=== PATIENT | female | born 1995 | race American Indian/Alaskan Native ===

== ENCOUNTER 2020-12-13 01:38 | Emergency (ER) | payer SELFPAY ==
[2020-12-13 03:19] LABS: Basophils % (Auto) 0.2 % (0.0-1.8); Eosinophils # (Auto) 0.2 K/mm3 (0.0-0.4); Eosinophils % (Auto) 2.3 % (0.0-4.3); Hematocrit 37.7 % (30.3-42.9); Hemoglobin 12.9 gm/dl (10.1-14.3); Lymphocytes # (Auto) 2.7 K/mm3 (1.2-5.4); Lymphocytes % (Auto) 26.5 % (13.4-35.0); Mean Corpuscular HGB Conc 34 % (30-34); Mean Corpuscular Volume 90 fl (79-97); Monocytes % (Auto) 9.5 % (0.0-7.3); Platelet Count 363 K/mm3 (140-440); Red Blood Count 4.18 M/mm3 (3.65-5.03); Red Cell Distribution Width 12.3 % (13.2-15.2)
[2020-12-13 03:41] LABS: Alanine Aminotransferase 10 units/L (7-56); Albumin 4.1 g/dL (3.9-5); Blood Urea Nitrogen 11 mg/dL (7-17); Calcium 8.8 mg/dL (8.4-10.2); Hemolysis Index 3
[2020-12-13 03:58] LABS: Bacteria,Urine 1+ /HPF (Negative); Bilirubin,Urine NEG (Negative); Blood,Urine NEG (Negative); Color,Urine Yellow (Yellow); Mucus,Urine 3+ /HPF; WBC,Urine < 1.0 /HPF (0.0-6.0)
[2020-12-13 04:00] LABS: BUN/Creatinine Ratio 22
--- NOTE | 2020-12-13 07:58 | Emergency Department Report ---
HPI - General Chief Complaint: Abdominal Pain - HPI HPI: Room 24 The patient is a 25-year-old female present with a chief complaint of abdominal cramping. The patient states that she is and last night developed bilateral lower quadrant cramping. Patient states the pain was intermittent. Patient denies vaginal bleeding or history of fever. When asked how she is fe mundo currently the patient states she feels good. ED Past Medical Hx - Past Medical History Previous Medical History?: No - Surgical History Past Surgical History?: No - Family History Family history: no significant - Social History Smoking Status: Never Smoker Substance Use Type: Marijuana - Medications Home Medications: Home Medications Medication Instructions Recorded Confirmed Last Taken Type Sulfamethoxazole/Trimethoprim 1 each PO BID 5 Days #10 tablet 07/29/19 Unknown Rx [Bactrim DS TAB] ED Review of Systems ROS: Stated complaint: EARLY /CRAMPING Other details as noted in HPI Constitutional: denies: fever Eyes: denies: eye pain ENT: denies: throat pain Respiratory: no symptoms reported Cardiovascular: denies: chest pain Endocrine: no symptoms reported Gastrointestinal: abdominal pain Genitourinary: denies: abnormal menses Musculoskeletal: denies: back pain Neurological: denies: headache Physical Exam - Physical Exam Vital Signs: Vital Signs 12/13/20 02:42 Temperature 98.4 F Pulse Rate 90 Respiratory 18 Rate Blood Pressure 112/79 O2 Sat by Pulse 99 Oximetry Physical Exam: GENERAL: The patient is well-developed well-nourished female lying on stretcher not appearing to be in acute distress. [] HEENT: Normocephalic. Atraumatic. Extraocular motions are intact. Patient has moist mucous membranes. NECK: Supple. Trachea midline CHEST/LUNGS: Clear to auscultation. There is no respiratory distress noted. HEART/CARDIOVASCULAR: Regular. There is no tachycardia. There is no gallop rub or murmur. ABDOMEN: Abdomen is soft, nontender. Patient has normal bowel sounds. There is no abdominal distention. SKIN: There is no rash. There is no edema. There is no diaphoresis. NEURO: The patient is awake, alert, and oriented. The patient is cooperative. The patient has no focal neurologic deficits. The patient has normal speech MUSCULOSKELETAL: There is no evidence of acute injury. ED Course Vital Signs 12/13/20 02:42 Temperature 98.4 F Pulse Rate 90 Respiratory 18 Rate Blood Pressure 112/79 O2 Sat by Pulse 99 Oximetry ED Medical Decision Making - Lab Data Result diagrams: 12/13/20 02:59 12/13/20 02:59 Laboratory Tests 12/13/20 12/13/20 12/13/20 02:59 02:59 02:59 WBC 10.1 RBC 4.18 Hgb 12.9 Hct 37.7 MCV 90 MCH 31 MCHC 34 RDW 12.3 L Plt Count 363 Lymph % (Auto) 26.5 [place] % (Auto) 9.5 H Eos % (Auto) 2.3 Baso % (Auto) 0.2 Lymph # (Auto) 2.7 [place] # (Auto) 1.0 H Eos # (Auto) 0.2 Baso # (Auto) 0.0 Seg Neutrophils % 61.5 Seg Neutrophils # 6.2 Sodium 136 L Potassium 3.6 Chloride 102.5 Carbon Dioxide 22 Anion Gap 15 BUN 11 Creatinine 0.5 L Estimated GFR > 60 BUN/Creatinine Ratio 22 Glucose 87 Calcium 8.8 Total Bilirubin 0.40 AST 12 ALT 10 Alkaline Phosphatase 69 Total Protein 7.6 Albumin 4.1 Albumin/Globulin Ratio 1.2 HCG, Qual Positive HCG, Quant Urine Color Urine Turbidity Urine pH Ur Specific [place] Urine Protein Urine Glucose (UA) Urine Ketones Urine Blood Urine Nitrite Ur Reducing Substances Urine Bilirubin Urine Ictotest Urine Urobilinogen Ur Leukocyte Esterase Urine WBC (Auto) Urine RBC (Auto) U Epithel Cells (Auto) Urine Bacteria (Auto) Urine Mucus 12/13/20 12/13/20 02:59 Unknown WBC RBC Hgb Hct MCV MCH MCHC RDW Plt Count Lymph % (Auto) [place] % (Auto) Eos % (Auto) Baso % (Auto) Lymph # (Auto) [place] # (Auto) Eos # (Auto) Baso # (Auto) Seg Neutrophils % Seg Neutrophils # Sodium Potassium Chloride Carbon Dioxide Anion Gap BUN Creatinine Estimated GFR BUN/Creatinine Ratio Glucose Calcium Total Bilirubin AST ALT Alkaline Phosphatase Total Protein Albumin Albumin/Globulin Ratio HCG, Qual HCG, Quant 9283 H Urine Color Yellow Urine Turbidity Clear Urine pH 7.0 Ur Specific [place] 1.027 Urine Protein 30 mg/dl Urine Glucose (UA) Neg Urine Ketones Neg Urine Blood Neg Urine Nitrite Neg Ur Reducing Substances Not Reportable Urine Bilirubin Neg Urine Ictotest Not Reportable Urine Urobilinogen 4.0 Ur Leukocyte Esterase Neg Urine WBC (Auto) < 1.0 Urine RBC (Auto) 1.0 U Epithel Cells (Auto) 6.0 Urine Bacteria (Auto) 1+ Urine Mucus 3+ - Radiology Data Radiology results: report reviewed (Pelvic ultrasound), image reviewed (Pelvic ultrasound) [facility] [address] [place] [address] Ultrasound Report Signed Patient: BJ GAITAN MR#: [id number] : 1995 Acct:[id number] Age/Sex: 25 / F ADM Date: 12/13/20 Loc: ED Attending Dr: Ordering Physician: KEVIN HER Date of Service: 12/13/20 Procedure(s): US OB transvaginal Accession Number(s): [id number] cc: KEVIN HER FIRSTTRIMESTER OBSTETRIC ULTRASOUND ULTRASOUND OB TRANSVAGINAL HISTORY: and cramping without bleeding that started this morning COMPARISON: None. TECHNIQUE: Routine transabdominal and transvaginal OB ultrasound performed. FINDINGS: The uterus is retroverted and measures 8.1 x 4.5 x 5.0 cm. No uterine mass is detected. A small intrauterine gestational sac is identified measuring 9 mm in average diameter which correlates with a 5 week 5 day . A small yolk sac is suggested. No convincing pole or heart rate is detected. No subchorionic hemorrhage. The right ovary measures 4.7 x 3.0 x 3.7 cm and contains 2 cysts. The larger cyst is simple in appearance measuring up to 2.8 cm. The smaller cyst is slightly complex with fine internal s eptations measuring up to 1.8 cm. The left ovary is unremarkable measuring 2.6 x 1.9 x 1.9 cm. No pelvic fluid collection is detected. IMPRESSION An intrauterine gestational sac is identified containing a small yolk sac. No definite pole or heart rate is detected at this time. This could represent an early normal intrauterine . Close interval follow-up is recommended. Right ovarian cysts as described. Signer Name: Loi Vargas Jr, MD Signed: 12/13/2020 7:58 AM Workstation Name: [id number] Transcribed By: TTR Dictated By: LOI VARGAS JR, MD Electronically Authenticated By: LOI VARGAS JR, MD Signed Date/Time: 12/13/20757 DD/ 3 TD/TT: Print Cancel - Differential Diagnosis Abdominal cramping, round ligament pain, threatened Critical care attestation.: If time is entered above; I have spent that time in minutes in the direct care of this critically ill patient, excluding procedure time. ED Disposition Clinical Impression: Abdominal cramping, Disposition: TO HOME OR SELFCARE Is pt being admited?: No Does the pt Need Aspirin: No Condition: Stable Instructions: Abdominal Pain (ED), Abdominal Pain During , Pepe-zy-Yigh Additional Instructions: Return to the emergency department should you develop worsening symptoms, inability to tolerate food or liquids, high fever or any other concerns Referrals: PRIMARY CARE, [Primary Care Provider] - 3-5 Days ADOLFO MASON MD [Staff Physician] - 3-5 Days (Dr. Mason is an COMPANY LAB[employer]ER. Please follow-up with her or your own COMPANY LAB[employer]ER for further evaluation) Time of Disposition: 08:11
--- NOTE | 2020-12-13 08:02 | Ultrasound Report ---
FIRSTTRIMESTER OBSTETRIC ULTRASOUND ULTRASOUND OB TRANSVAGINAL HISTORY: and cramping without bleeding that started this morning COMPARISON: None. TECHNIQUE: Routine transabdominal and transvaginal OB ultrasound performed. FINDINGS: The uterus is retroverted and measures 8.1 x 4.5 x 5.0 cm. No uterine mass is detected. A small intra uterine gestational sac is identified measuring 9 mm in average diameter which correlates with a 5 we ek 5 day . A small yolk sac is suggested. No convincing pole or heart rate is de tected. No subchorionic hemorrhage. The right ovary measures 4.7 x 3.0 x 3.7 cm and contains 2 cysts. The larger cyst is simple in appear ance measuring up to 2.8 cm. The smaller cyst is slightly complex with fine internal septations measu ring up to 1.8 cm. The left ovary is unremarkable measuring 2.6 x 1.9 x 1.9 cm. No pelvic fluid collection is detected. IMPRESSION An intrauterine gestational sac is identified containing a small yolk sac. No definite pole or heart rate is detected at this time. This could represent an early normal intrauterine pregnanc y. Close interval follow-up is recommended. Right ovarian cysts as described. Signer Name: Loi Vargas Jr, MD Signed: 12/13/2020 7:58 AM Workstation Name: [id number]
[2020-12-13 08:31] VITALS: BP 120/79
== END 2020-12-13 08:31 | disposition home or self-care (01) ==
LOC: ED 01:38
DX: O26.891 Other specified pregnancy related conditions, first trimester (principal); R10.31 Right lower quadrant pain; R10.32 Left lower quadrant pain; O99.321 Drug use complicating pregnancy, first trimester; F12.90 Cannabis use, unspecified, uncomplicated; Z3A.01 Less than 8 weeks gestation of pregnancy; Z98.890 Other specified postprocedural states; Z79.899 Other long term (current) drug therapy
CPT/HCPCS: 36415; 76801; 76817; 80053; 81001; 84702; 84703; 85025; 99284

== ENCOUNTER 2021-06-22 11:52 | Outpatient (CLI) | payer OTHER ==
[2021-06-22 12:56] VITALS: BP 111/70
[2021-06-22 13:59] LABS: Bacteria,Urine 1+ /HPF (Negative); Bilirubin,Urine NEG (Negative); Blood,Urine NEG (Negative); Color,Urine Yellow (Yellow); Mucus,Urine 3+ /HPF; Urobilinogen,Urine < 2.0 mg/dL (<2.0)
[2021-06-22] MEDS ORDERED: LACTATED RINGERS 1,000 ML IV ONE (14:46)
[2021-06-22] MEDS ORDERED: LACTATED RINGERS 1,000 ML IV SCH (19:15)
--- NOTE | 2021-06-22 19:23 | Event Note ---
Date: 06/22/21 Pt is a 25 y.o. pt that came to triage with complaints of upper abdominal pain that started this morning while she was eating breakfast. EFM category 1 with contractions. She was also noted to have some maternal tachycardia to the 120s. Cervical exam closed/thick/OOP. She was given some IV fluids with continued irregular contractions but unchanged cervix. Heart rate upon discharge was 90's to low 100's. Pt had no complaints of chest pain. Pt stated after IV fluid bolus that she was feeling better, no longer had abdominal pain, and was not feeling any contractions. She also denied vaginal bleeding, and LOF. There was positive movement. Plan for her to follow up in the office on Sunday the @ 1330. Pt aware of appointment date and time. Discussed when to call the financial administration officer provider. Pt discharged home in good condition, with no complaints, and ambulatory.
== END 2021-06-22 19:30 | disposition home or self-care (01) ==
LOC: TRG 11:52 → APU 12:09 → TRG 19:30
PROVIDERS: ATTEND Obstetrics & Gynecology
DX: O62.9 Abnormality of forces of labor, unspecified (principal); Z3A.32 32 weeks gestation of pregnancy
CPT/HCPCS: 59025; 81001; 87086; 96360; 96361; J7120; J3490

== ENCOUNTER 2021-06-27 14:32 | Outpatient (CLI) | payer OTHER ==
[2021-06-27] MEDS ORDERED: LACTATED RINGERS 500 ML IV ONE ×2 (14:53→15:36)
[2021-06-27] MEDS ORDERED: TERBUTALINE 1 MG/1 ML INJ SUB-Q SCH (15:00)
[2021-06-27 15:07] VITALS: BP 129/70
[2021-06-27] MEDS ORDERED: LACTATED RINGERS 1,000 ML IV ONE (15:36)
[2021-06-27 17:21] LABS: Bilirubin,Urine NEG (Negative); Blood,Urine SM (Negative); Color,Urine Yellow (Yellow); Mucus,Urine 2+ /HPF; Urobilinogen,Urine < 2.0 mg/dL (<2.0)
--- NOTE | 2021-06-27 18:05 | Event Note ---
Date: 06/27/21 Pt is a 25 y.o. @ 32+ wks sent from office d/t dehydration and ctxs. Cervical exam cl/th/hi. She was given IV fluids and no desires to be discharged home. She declined a second bag of IV fluids. She denies vaginal bleeding, LOF. There is positive movement and the monitor strip throughout triage stay was a category 1 with some irregular ctxs noted. Of note patient with maternal tachycardia. Will put in for outpatient referral to [facility]. Pt currently denies shortness of breath and chest pain. Pt provided the number to call to make an appointment. Will follow up with patient this week. Pt given strict precautions on when to return to triage for an evaluation and when to call the training professional provider. Pt discharged from triage in good condition.
== END 2021-06-27 18:10 | disposition home or self-care (01) ==
LOC: TRG 14:32 → APU 14:34 → TRG 18:10
PROVIDERS: ATTEND Obstetrics & Gynecology
DX: O62.9 Abnormality of forces of labor, unspecified (principal); O26.893 Other specified pregnancy related conditions, third trimester; E86.0 Dehydration; Z3A.33 33 weeks gestation of pregnancy
CPT/HCPCS: 59025; 81001; 96360; 96361; J7120